=== PATIENT | male | born 1995 | race Caucasian/White ===

== ENCOUNTER → 2020-01-27 16:01 | Outpatient (CLI) | payer BC, SELFPAY ==
--- NOTE | 2020-01-27 16:11 | XR_ITS ---
PROCEDURE: XR CHEST PORTABLE CLINICAL HISTORY: Cough, congestion, COMPARISON: No exams were available for comparison FINDINGS: The cardiomediastinal silhouette and pulmonary vascularity are within normal limits. The lungs are clear without infiltrates, suspicious nodules, or pleural effusions. No acute bony abnormalities. IMPRESSION: No acute findings. Dictated by: Jose Ross MD 01/27/2020 17:27 Electronically signed by Jose Ross MD in [place] 01/27/2020 17:27
== END ==
PROVIDERS: PCP Internal Medicine Adolescent Medicine; Visit Provider Internal Medicine Adolescent Medicine
DX: R68.89 Other general symptoms and signs (principal)
CPT/HCPCS: 71045